=== PATIENT | female | born 1965 | race Asian ===

== ENCOUNTER 2018-09-01 16:12 | Emergency (ER) | payer MEDICAID ==
[~2018-09-01] VITALS: Ht 157.5 cm; Wt 58.1 kg
[~2018-09-01 16:12] MED LIST: A/B OTIC15 ML; ANTIVERT/2525 MG; OMEPRAZOLE DR20 M1
[2018-09-01 16:18] VITALS: Ht 157.5 cm; Wt 58.1 kg
[2018-09-01 18:46] VITALS: BP 154/99
== END 2018-09-01 18:46 | disposition home or self-care (01) ==
LOC: ED 16:12
DX: R51 Headache (principal); M54.2 Cervicalgia; Z98.890 Other specified postprocedural states
CPT/HCPCS: J1885; J2765

== ENCOUNTER 2019-06-07 18:49 | Inpatient (IN) | payer MEDICAID ==
[~2019-06-07] VITALS: Ht 157.5 cm; Wt 57.0 kg
--- NOTE | 2019-06-07 19:31 | NUR ---
MSE COMPLETED BY DR COREY.
[2019-06-07 19:44] LABS: BASOPHIL % 0.4 % (0-2); PLATELET COUNT 317 x10^3mcL (130-400)
[2019-06-07 19:46] LABS: RED CELL DISTRIBUTION WIDTH 15.9 % (11.5-14.5)
--- NOTE | 2019-06-07 20:04 | NUR ---
MULTIPLE UNSUCCESSFUL IV ATTEMPTS BY MYSELF. GEOVANI RN AT BEDSIDE ATTEMPTING IV START.
[2019-06-07 20:16] LABS: CARBON DIOXIDE 29.7 mmol/L (21-32); CHLORIDE SERUM 104 mmol/L (98-107); CREATININE SERUM 0.5 mg/dL (0.6-1.0); GFR1 > 60 mL/min; GLUCOSE SERUM 107 mg/dL (74-106); POTASSIUM SERUM 3.5 mmol/L (3.5-5.1); SODIUM SERUM 143 mmol/L (136-145)
--- NOTE | 2019-06-07 20:20 | NUR ---
PT RESTING ON GURNEY IN NAD. CM AND [address] PT AWAKE AND ALERT, BREATHING EVEN AND UNLABORED. WILL CONTINUE TO MONITOR.
[2019-06-07 20:21] LABS: ALBUMIN 4.1 g/dL (3.4-5.0); ALKALINE PHOSPHATASE 72 U/L (46-116); ALT/SGPT 157 U/L (14-59); AST/SGOT 75 U/L (15-37); BILIRUBIN TOTAL 0.6 mg/dL (0.20-1.00); TOTAL PROTEIN, SERUM 7.6 g/dL (6.4-8.2)
--- NOTE | 2019-06-07 21:39 | NUR ---
IV FLUIDS RUNNING AT ORDERED RATE. PT A&0X4, SPEAKING FULL CLEAR SENTENCES. BREATHING EVEN AND UNLABORED. CM AND [address] WILL CONTINUE TO MONITOR.
--- NOTE | 2019-06-07 22:45 | NUR ---
PT RESTING ON GURNEY IN NAD, BREATHING EVEN AND UNLABORED. CM AND [address] PT AWAKE AND ALERT, WILL CONTINUE TO MONITOR.
--- NOTE | 2019-06-07 23:42 | NUR ---
PT RESTING ON GURNEY IN NAD. PT A&0X4, SPEAKING FULL CLEAR SENTENCES. BREATHING EVEN AND UNLABORED. CM AND [address] IV INTACT. WILL CONTINUE TO MONITOR.
--- NOTE | 2019-06-07 23:47 | NUR ---
REPORT CALLED TO PHILLIP MCCAULEY.
--- NOTE | 2019-06-08 | NUR ---
PT TRANSFERED TO TELE 257B AT THIS TIME VIA [facility] ACCOMPANIED BY MYSELF AND MALIHA EMT. PT A&0X4, SPEAKING FULL CLEAR SENTENCES. BREATHING EVEN AND UNLABORED. PT VERBALIZED UNDERSTANDING OF PLAN OF CARE. PT AMBULATED FROM GURNEY TO BED WITH STEADY GAIT AND USE OF ASSISTIVE DEVICE. IV INTACT, NO COMPLICATIONS NOTED.
--- NOTE | 2019-06-08 00:01 | NUR ---
RECEIVED FROM ,PUT IN ROOM 257 B AND MADE COMFORTABLE.ALERT AND ORIENTED.MAKE NEEDS KNOWN.TELE 20 ASSIGNED.WILL ADMIT PATIENT.
[2019-06-08 00:09] VITALS: BP 148/82
--- NOTE | 2019-06-08 01:12 | NUR ---
IV RAC ALREADY SWOLLEN FROM ER,TRY TO FLUSH IT,NO GOOD,ER NURSE IT IS POSITIONAL.NOT.TRIED 3 TIMES,UNABLE TO.AUBREY WILL TRY.
--- NOTE | 2019-06-08 01:14 | NUR ---
ADMISSION HX AND ASSESSMENT DONE.NO SURGICAL HX.
--- NOTE | 2019-06-08 03:12 | NUR ---
IVF INFUSING WELL AT 100 CC/ HOUR.CALL LIGHT IN REACH.
--- NOTE | 2019-06-08 05:57 | NUR ---
I AND O MEASURED.NO DISTRES THIS SHIFT.NPO,US ABD.NO DIET ORDER YET,WILL ENDORSE TO NEXT SHIFT.
[2019-06-08 05:58] VITALS: BP 144/83
--- NOTE | 2019-06-08 06:02 | NUR ---
I AND O MEASURED.GEN WEAKNESS NOTED.USES CANE FROM HOME.NS AT 100 CC/HOUR.CONTINOUS.WILL ENDORSE TO NEXT SHIFT.
[2019-06-08 06:28] LABS: CALCIUM 7.9 mg/dL (8.5-10.1); CHLORIDE SERUM 109 mmol/L (98-107); CREATININE SERUM 0.4 mg/dL (0.6-1.0); GFR1 > 60 mL/min; GLUCOSE SERUM 108 mg/dL (74-106); POTASSIUM SERUM 3.3 mmol/L (3.5-5.1); SODIUM SERUM 144 mmol/L (136-145)
[2019-06-08 06:35] LABS: BASOPHIL % 0.4 % (0-2); PLATELET COUNT 245 x10^3mcL (130-400)
[2019-06-08 07:05] LABS: RED CELL DISTRIBUTION WIDTH 15.7 % (11.5-14.5)
--- NOTE | 2019-06-08 07:17 | NUR ---
RECEIVED REPORT FROM PHILLIP MCCAULEY. PATIENT RESTING IN BED CURRNETLY HAVING US ABDOMEN. ALL NEEDS MET. IV TO LFA IA PATENT AND INFUSING NS @ 100 ML/HR. NO REDNESS OR PAIN. TELE # [address] PT DENIES CHEST PAIN. PT ON ROOM AIR. NO C/O SOB AND NO DISTRESS NOTED. ALL QUESTIONS AND CONCERNS ADDRESSED.
--- NOTE | 2019-06-08 08:33 | NUR ---
IN TO SEE PATIENT AND ADMINISTER MEDICATION (SEE eMAR). PATIENT RESTIGN IN BED C/O NECK PAIN 01/13. PT DECLINES NORCO. TYLENOL GIVEN. WILL REASSESS.
[2019-06-08 08:54] VITALS: BP 147/87
--- NOTE | 2019-06-08 09:12 | NUR ---
SPOKE WITH DR MEDLEY TO NOTIFY OF K+ 3.3 AND US ABDOMEN COMPLETE. REQUESTED COVERAGE AND DIET ORDER. DR MEDLEY ORDERED REGULAR DIET AND STATED HE WILL BE THERE SOON. NO COVERAGE ORDERED. WILL FOLLOW UP.
--- NOTE | 2019-06-08 10:17 | NUR ---
NOTED THAT DR MEDLEY ORDERED COVERAGE FOR K+ 3.3
[2019-06-08 12:16] VITALS: BP 140/86
--- NOTE | 2019-06-08 12:58 | NUR ---
SPOKE WITH DR MEDLEY TO NOTIFY OF DISCONTINUATION OF FLUIDS. DR MEDLEY ORDERED TO CONTINUE ADMINISTRATION OF NS @ 100 ML/HR.
--- NOTE | 2019-06-08 14:50 | NUR ---
IN TO SEE PATIENT AND ADMINISTER MEDICATION (SEE eMAR). PATIENT RESTING COMFORTABLY IN BED WITH FAMILY AT BEDSIDE. ALL NEEDS MET.
[2019-06-08 15:59] VITALS: BP 152/83
--- NOTE | 2019-06-08 19:01 | NUR ---
REPORT GIVEN TO PHILLIP MCCAULEY. PATIENT SITTING COMFORTABLY IN BED WITH ALL NEEDS MET. NO SIGNIFICANT CHANGES THROUGHOUT THE DAY. ALL QUESTIONS AND CONCERNS ADDRESSED. ALL CARES ENDORSED.
--- NOTE | 2019-06-08 19:20 | NUR ---
SHIFT REASSESSMENT DONE.PATIENT ALERT AND ORENTED.SITTING UP,IN GOOD SPIRIT.PATIENT IV FLUID NS AT 100 CC/ HOUR LFA IV SITE INTACT AND INFUSING WELL.TELE 20 SR.CALL LIGHT IN REACH.
--- NOTE | 2019-06-08 20:23 | NUR ---
FAMILY AT BEDSIDE,SUPPORTIVE OF CARE.ATIVAN GIVEN,SAYS FOR SLEEP.MADE AWARE THAT SHE HAS PAIN MED AND ALSO FOR DIZZINESS/MECLIZINE.
[2019-06-08 21:00] VITALS: BP 144/72
--- NOTE | 2019-06-08 23:47 | NUR ---
NEW IV BAG,REMINDED TO CALL FOR ASSISTANCE,CALL LIGHT IN REACH.
[2019-06-09 05:28] VITALS: BP 119/54
[2019-06-09 07:52] LABS: BASOPHIL % 0.4 % (0-2); PLATELET COUNT 241 x10^3mcL (130-400)
[2019-06-09 07:55] LABS: CALCIUM 8.2 mg/dL (8.5-10.1); CARBON DIOXIDE 24.8 mmol/L (21-32); CHLORIDE SERUM 107 mmol/L (98-107); CREATININE SERUM 0.4 mg/dL (0.6-1.0); GFR1 > 60 mL/min; GLUCOSE SERUM 100 mg/dL (74-106); POTASSIUM SERUM 3.3 mmol/L (3.5-5.1); SODIUM SERUM 143 mmol/L (136-145)
--- NOTE | 2019-06-09 08:00 | NUR ---
RC'D PT RESTING IN BED WITH NO APPARENT SIGNS OF DISTRESS. A/A/O/X4, SPEECH CLEAR AND APPROPRIATE. PT DENIES CORDON/DIZZINESS. ON TELE, PT DENIES CP AT THIS TIME. PALP PULSES, NO EDEMA NOTED. RESPIRATIONS EQUAL AND UNLABORED. LUNGS CTA. ON RA, DENIES SOB. ABDOMEN SOFT AND NONTENDER AT THIS TIME. ACTIVE BS. PT DENIES N/V. VOIDS FREELY, DENIES BURNING. GENERALIZED WEAKNESS. PT USES CANE FOR AMBULATION. SKIN W/D/I. PT DENIES PAIN AT THIS TIME. IV PATENT AND INTACT. BED IN LOW POSITION. CALL LIGHT IN REACH. WILL CONT TO MONITOR
[2019-06-09 08:26] VITALS: BP 142/84
--- NOTE | 2019-06-09 09:02 | NUR ---
AM MEDICATIONS GIVEN. PT TOLERATED WELL. PT C/O OF 6/10 BACK PAIN, MEDICATED PER EMAR. RESPIRATIONS EQUAL AND UNLABORED. ON RA, DENIES SOB. BED IN LOW POSITION. CALL LIGHT IN REACH. WILL CONT TO MONITOR
--- NOTE | 2019-06-09 11:57 | NUR ---
PT RESTING IN BED WITH NO APPARENT SIGNS OF DISTRESS. RESPIRATIONS EQUAL AND UNLABORED. ON RA, DENIES SOB. PT DENIES PAIN AT THIS TIME. BED IN LOW POSITION. CALL LIGHT IN REACH. WILL CONT TO MONITOR
[2019-06-09 12:13] VITALS: BP 149/89
--- NOTE | 2019-06-09 15:00 | NUR ---
PT RESTING IN BED WITH NO APPARENT S/S OF DISTRESS. RESPIRATIONS EQUAL AND UNLABORED. ON RA, DENIES SOB. BED IN LOWEST POSITION. CALL LIGHT IN REACH. WILL CONT TO MONTITOR
--- NOTE | 2019-06-09 15:54 | NUR ---
PT RESTING IN BED. PT DENIES PAIN. BED IN LOW POSITION. CALL LIGHT IN REACH. WILL CONT TO MONITOR
[2019-06-09 16:39] VITALS: BP 119/63
--- NOTE | 2019-06-09 16:53 | NUR ---
LFA IV INFILTRATED. IV REMOVED, CATHETER INTACT. NEW IV TO RH 22G. PATENT AND INTACT.
--- NOTE | 2019-06-09 17:12 | NUR ---
PT RESTING IN BED WITH NO APPARENT S/S OF DISTRESS. RESPIRATIONS EQUAL AND UNLABORED. ON RA, DENIES SOB. PT DENIES PAIN AT THIS TIME. ON TELE, DENIES CP. GENERALIZED WEAKNESS. PT USES CANE UPON AMBULATION. NO ACUTE SKIN CHANGES NOTED AT THIS TIME. IV PATENT AND ITNACT. BED IN LOWEST POSITION. CALL LIGHT IN REACH. WILL ENDORSE TO ARTIFICIAL CANDY MAKER RN
--- NOTE | 2019-06-09 19:10 | NUR ---
PT RESTING IN BED WITH NO APPARENT S/S OF DISTRESS. A/A/O/X4, SPEECH CLEAR AND APPROPRIATE. PT DENIES CORDON/DIZZINESS. ON TELE, DENIES CP. PALP PULSES, NO EDEMA NOTED. RESPIRATIONS EQUAL AND UNLABORED. LUNGS CTA. ON RA, DENIES SOB. ABDOMEN SOFT AND NONTENDER AT THIS TIME. ACTIVE BS. DENIES N/V. VOIDS FREELY, DENIES BURNING. GENERALIZED WEAKNESS. PT USES CANE FOR AMBULATION. SKIN W/D/I. PT DENIES PAIN AT THIS TIME. IV PATENT AND INTACT. BED IN LOW POSITION. CALL LIGHT IN REACH. WILL CONT TO MONITOR
--- NOTE | 2019-06-09 20:05 | NUR ---
PT C/O OF 5/10 PAIN, MEDICATED PER EMAR. VSS. RESPIRATIONS EQUAL AND UNLABORED. ON RA, DENIES SOB. BED IN LOWEST POSITION. CALL LIGHT IN REACH. WILL CONT TO MONITOR
[2019-06-09 20:11] VITALS: BP 141/79
--- NOTE | 2019-06-10 02:31 | NUR ---
RECEIVED PT FROM PAULA MCCAULEY. PT CURRENTLY RESTING IN BED, NO ACUTE DISTRESS. WILL CONTINUE TO MONITOR.
--- NOTE | 2019-06-10 02:35 | NUR ---
PT ENDORSED TO LEAD INFRASTRUCTURE ARCHITECT RN BLANCA. ALL QUESTIONS AND CNOCERNS ADDRESSED
[2019-06-10 05:06] VITALS: BP 136/76
[2019-06-10 06:28] LABS: BASOPHIL % 0.6 % (0-2); PLATELET COUNT 249 x10^3mcL (130-400)
--- NOTE | 2019-06-10 06:29 | NUR ---
PT SLEPT PERIODICALLY THROUGHOUT NIGHT, NO ACUTE DISTRESS. ALL NEEDS MET AND ATTENDED TO. NO SIGNIFICANT CHANGES. IV PATENT AND INTACT. BED IN LOWEST POSITION, SIDE RAILS UP X2, CALL LIGHT WITHIN REACH. WILL ENDORSE CARE TO ONCOMING NURSE.
[2019-06-10 06:40] LABS: RED CELL DISTRIBUTION WIDTH 15.7 % (11.5-14.5)
[2019-06-10 06:47] LABS: CALCIUM 8.4 mg/dL (8.5-10.1); CARBON DIOXIDE 27.3 mmol/L (21-32); CHLORIDE SERUM 107 mmol/L (98-107); CREATININE SERUM 0.4 mg/dL (0.6-1.0); GFR1 > 60 mL/min; GLUCOSE SERUM 110 mg/dL (74-106); SODIUM SERUM 143 mmol/L (136-145)
[2019-06-10 09:48] VITALS: BP 133/74
[2019-06-10 13:25] VITALS: BP 135/79
[2019-06-10 16:56] VITALS: BP 136/85
--- NOTE | 2019-06-10 20:26 | NUR ---
PT CURRENTLY RESTING IN BED, NO ACUTE DISTRESS. A/O X4. TELE #20 SHOWING SINUS RHYTHM, DENIES CHEST PAIN. PULSES PALPABLE IN ALL EXTREMITIES, NO EDEMA NOTED. LUNG SOUNDS CTA BILATERALLY, DENIES SOB. BOWEL SOUNDS ACTIVE, LAST BM 06/10/19. VOIDING WELL. MILD GENERALIZED WEAKNESS, AMBULATORY WITH CANE. SKIN INTACT. IV PATENT AND INTACT. BED IN LOWEST POSITION, SIDE RAILS UP X2, CALL LIGHT WITHIN REACH. WILL CONTINUE TO MONITOR.
[2019-06-10 20:47] VITALS: BP 146/85
--- NOTE | 2019-06-11 00:41 | NUR ---
PT CURRENTLY RESTING IN BED, NO ACUTE DISTRESS. WILL CONTINUE TO MONITOR.
[2019-06-11 04:46] VITALS: BP 139/89
[2019-06-11 06:46] LABS: BASOPHIL % 0.3 % (0-2); PLATELET COUNT 250 x10^3mcL (130-400)
[2019-06-11 06:53] LABS: CALCIUM 8.4 mg/dL (8.5-10.1); CARBON DIOXIDE 27.1 mmol/L (21-32); CHLORIDE SERUM 107 mmol/L (98-107); CREATININE SERUM 0.4 mg/dL (0.6-1.0); GFR1 > 60 mL/min; GLUCOSE SERUM 113 mg/dL (74-106); POTASSIUM SERUM 3.7 mmol/L (3.5-5.1); SODIUM SERUM 142 mmol/L (136-145)
[2019-06-11 07:02] LABS: RED CELL DISTRIBUTION WIDTH 15.8 % (11.5-14.5)
--- NOTE | 2019-06-11 07:09 | NUR ---
RECEIVED PT FROM MAIL MANAGER NURSE. PT UP TO RESTROOM AT THIS TIME, AOX4, RESP E/U ON RA. NO ACUTE DISTRESS NOTED. IV TO RH W/ NO SIGNS OF INFILTRATION, IVF INFUSING WELL. WILL CONTINUE TO MONITOR.
[2019-06-11 08:05] VITALS: BP 153/84
[2019-06-11 11:57] VITALS: BP 140/85
--- NOTE | 2019-06-11 12:57 | NUR ---
PT IN ROOM AMBULATING, GAIT BALANCED AND STEADY W/ IV POLL, AOX4, RESP E/U ON RA. DENIES DIZZINESS, SOB OR BODY ACHES AT THIS TIME, NO ACUTE DISTRESS NOTED. WILL CONTINUE TO MONITOR.
[2019-06-11 16:43] VITALS: BP 137/82
--- NOTE | 2019-06-11 18:14 | NUR ---
PT RESTING IN BED, AOX4, RESP E/U ON RA. NO ACUTE DISTRESS NOTED. IV TO R HAND W/ NO SIGNS OF INFILTRATION, IVF INFUSING WELL. BED IN LOWEST POSITION AND CALL LIGHT WITHIN REACH. WILL ENDORSE TO ONCOMING NURSE.
--- NOTE | 2019-06-11 19:25 | NUR ---
RECEIVED PT RESTING IN BED, AOX4, RESP E/U ON RA. NO ACUTE DISTRESS NOTED. IV TO R HAND W/ NO SIGNS OF INFILTRATION, IVF INFUSING NS @ 100 CC/HR. BED IN LOWEST POSITION AND CALL LIGHT WITHIN REACH, HOB ELEVAETD 30 DEGREES. WILL CONT TO MONITOR. SEE NURSING ASSESSMENT FOR MORE DETAILS.
[2019-06-11 20:53] VITALS: BP 141/93
--- NOTE | 2019-06-12 01:25 | NUR ---
PT SLEEPING BUT EASILY AROUSABLE TO VERBAL STIMULI. PT IN NO ACUTE DISTRESS, NO SOB NOTED. WILL CONT TO MONITOR
[2019-06-12 05:09] VITALS: BP 134/78
--- NOTE | 2019-06-12 05:26 | NUR ---
PT RESTING IN BED BUT EASILY AROUSABLE, AOX4, RESP E/U ON RA. NO ACUTE DISTRESS NOTED. NO SOB. IV TO R HAND W/ NO SIGNS OF INFILTRATION, IVF INFUSING WELL, NO S/S OF INFILTRATION, DRESSING CDI. BED IN LOWEST POSITION AND CALL LIGHT WITHIN REACH. WILL ENDORSE TO ONCOMING NURSE.
[2019-06-12 07:03] LABS: BASOPHIL % 0.4 % (0-2); PLATELET COUNT 261 x10^3mcL (130-400)
[2019-06-12 07:05] LABS: CALCIUM 8.1 mg/dL (8.5-10.1); CARBON DIOXIDE 25.2 mmol/L (21-32); CHLORIDE SERUM 108 mmol/L (98-107); CREATININE SERUM 0.3 mg/dL (0.6-1.0); GFR1 > 60 mL/min; GLUCOSE SERUM 110 mg/dL (74-106); POTASSIUM SERUM 3.7 mmol/L (3.5-5.1); SODIUM SERUM 142 mmol/L (136-145)
--- NOTE | 2019-06-12 07:10 | NUR ---
GAVE REPORT TO GARRICK VENEGAS. UPDATES GIVEN, QUESTIONS ANSWERED, ENODRSED CARE.
[2019-06-12 07:19] LABS: RED CELL DISTRIBUTION WIDTH 15.8 % (11.5-14.5)
--- NOTE | 2019-06-12 07:28 | NUR ---
RECEIVED PT'S REPORT FROM LEAVING NURSE. PT IS AMBULATING WITH STEADY GAIT. PT DENIED BODY AND MUSCLE PAIN AT THIS TIME. PT BREATHING ON RA, EVEN, UNLABORED. IV SITE PATENT, INTACT. IVF NS INFUSING AT 100ML/HR.
[2019-06-12 08:25] VITALS: BP 138/83
[2019-06-12 08:37] VITALS: BP 139/81
[2019-06-12 12:15] VITALS: BP 139/80
[2019-06-12 14:29] VITALS: BP 139/80
--- NOTE | 2019-06-12 14:57 | NUR ---
PHYSICAL THERAPY DAILY NOTES CO-SIGN All documentation done by the Turret Press Operator for 06/12/19 has been reviewed. I agree with the documentation. Reviewed/Co-Signed by: Nayana Alston PT Documentation Done by: RENEE JASMINE PTA
--- NOTE | 2019-06-12 15:08 | NUR ---
PT IS READY TO DISCHARGE. DISCHARGE INSTRUCTION GIVEN. EMPHASIZED ON PT'S FOLLOW UP APPOITMENT. PT STATED UNDERSTAND. PT NO COMPLAIN OF PAIN AT THIS TIME. PT'S SISTER WILL TAKE PT HOME. IV, ID BAND AND TELE MONITOR REMOVED. WILL SEND PT OUT OF UNIT VIA WHEELCHAIR.
== END 2019-06-12 15:19 | disposition home or self-care (01) | DRG 346 ==
LOC: ED 18:49 → DU 22:45
PROVIDERS: Emergency Medicine; ADMIT Internal Medicine
DX: M32.9 Systemic lupus erythematosus, unspecified (principal); N17.0 Acute kidney failure with tubular necrosis; E86.0 Dehydration; E87.6 Hypokalemia; K27.9 Peptic ulcer, site unspecified, unspecified as acute or chronic, without hemorrhage or perforation
CPT/HCPCS: 97116-GP; G0378; J1885; J7030; Q0092